=== PATIENT | female | born 1975 | race Caucasian/White ===

== ENCOUNTER 2016-11-16 17:50 | Emergency (ER) | payer MEDICAID ==
[~2016-11-16] VITALS: Ht 175.3 cm; Wt 107.5 kg
[~2016-11-16 17:50] MED LIST: COLACE; METFORMIN; OMEPRAZOLE; TRENTAL
[2016-11-16 17:54] VITALS: Ht 175.3 cm; Wt 107.5 kg
[2016-11-16 20:34] LABS: URINE BLOOD (Dip) POC 3+ (NEGATIVE)
--- NOTE | 2016-11-16 21:13 | ERD ---
ER Documentation Chief Complaint Date/Time DATE: 11/16/16 TIME: 21:12 Chief Complaint Complains of burning when urinating HPI 40-year-old female complains of Burning with urgency when she urinates, and lower abdominal discomfort 2 days. She denies any fevers or chills, nausea, vomiting. She denies flank pain or hematuria. Patient states that she is currently on her menses. She states she denies any vaginal discharge. She denies pelvic pain. ROS All systems reviewed and are negative except as per history of present illness. Medications Home Meds Active Scripts Phenazopyridine Hcl* (Pyridium*) 100 Mg Tab, 100 MG PO TID Y for URINARY PAIN, # 8 TAB Prov:AARON PICKETT PA-C 11/16/16 Reported Medications [Trental] No Conflict Check 04/28/09 [Colace] No Conflict Check 04/28/09 [Metformin] No Conflict Check 04/28/09 [Omeprazole] No Conflict Check 04/28/09 Allergies Allergies: Coded Allergies: No Known Allergies (Verified Allergy, Mild, 04/28/09) PMhx/Soc History of Surgery: No Anesthesia Reaction: No Hx Neurological Disorder: No Hx Respiratory Disorders: No Hx Cardiac Disorders: No Hx Psychiatric Problems: No Hx Miscellaneous Medical Probl: No Hx Alcohol Use: No Hx Substance Use: No Hx Tobacco Use: No Physical Exam Vitals Vital Signs Date Time Temp Pulse Resp B/P Pulse Ox O2 Delivery O2 Flow Rate FiO2 11/16/16 17:54 98.9 90 20 141/74 97 Physical Exam General: Well-developed, well-nourished. The patient appears in no acute distress. HEENT: Head is normocephalic, atraumatic. No scleral icterus. Pupils are equal , round, and reactive. Oral mucous membranes are moist. No pharyngeal erythema. Neck: Supple. Nontender. Lungs: Clear to auscultation. Normal air movement. Heart: Regular rate and rhythm. S1 and S2 are normal. No murmurs, gallops, or rubs. Abdomen: Soft, nontender, nondistended. Bowel sounds are normoactive. No CVA tenderness Extremities: No clubbing or cyanosis. Normal pulses. Moving extremities x 4. No weakness. Neurologic: Alert and oriented 3. No focal deficits. Skin: Normal turgor. No rash or lesions. Results 24 hrs Laboratory Tests Test 11/16/16 20:30 11/16/16 20:41 Urine Color STRAW Urine Clarity CLEAR Urine pH 6.0 Urine Specific Ferdinand 1.005 Urine Ketones NEGATIVEmg/dL Urine Nitrite NEGATIVEmg/dL Urine Bilirubin NEGATIVEmg/dL Urine Urobilinogen NEGATIVEmg/dL Urine Leukocyte Esterase NEGATIVELeu/ul Urine Microscopic RBC 1/HPF Urine Microscopic WBC 2/HPF Urine Bacteria FEW/HPF Urine Hemoglobin 3+mg/dL Urine Glucose NEGATIVEmg/dL Urine Total Protein NEGATIVEmg/dl Bedside Urine pH (LAB) 5.5 Bedside Urine Protein (LAB) Negative Bedside Urine Glucose (UA) Negative Bedside Urine Ketones (LAB) Negative Bedside Urine Blood 3+ Bedside Urine Nitrite (LAB) Negative Bedside Urine Leukocyte Esterase (L Negative Procedures/MDM 40-year-old female comes in with painful urination, as well as urgency for the past 2 days. Differential diagnoses includes interstitial cystitis, urinary tract infection, pyelonephritis, PID, cervicitis, , menstrual pain. Urine was negative for infection. Patient's urine analysis is negative for infection at this time, she complains abdominal discomfort in the lower region, will be treated with Pyridium. She has been asked to recheck with her primary doctor for any new or worsening symptoms. She urine does not show evidence of a UTI, she was asked to return if she develops any fever, worsening pain. Departure Diagnosis: Primary Impression: Dysuria Condition: AARON Murphy PA-C Nov 16, 2016 21:13
[2016-11-16 22:16] LABS: ADD UMIC YES; UR ASCORBIC ACID NEGATIVE (NEGATIVE); UR BACTERIA FEW /HPF (NONE SEEN); UR BILIRUBIN (Dip) NEGATIVE (NEGATIVE); UR BLOOD (Dip) 3+ mg/dL (NEGATIVE); UR CLARITY CLEAR (CLEAR); UR COLOR STRAW (YELLOW); UR GLUCOSE (Dip) NEGATIVE (NEGATIVE); UR KETONES (Dip) NEGATIVE (NEGATIVE); UR LEUKOCYTE ESTERASE (Dip) NEGATIVE Leu/ul (NEGATIVE); UR NITRITE (Dip) NEGATIVE (NEGATIVE); UR RBC 1 /HPF (0-5); UR SPECIFIC GRAVITY (Dip) 1.005 (1.003-1.030); UR TOTAL PROTEIN (Dip) NEGATIVE (NEGATIVE); UR UROBILINOGEN (Dip) NEGATIVE (NEGATIVE)
[2016-11-16] MEDS ORDERED: PHEN-537 PO (22:24)
== END 2016-11-16 22:50 | disposition home or self-care (01) ==
LOC: FTE 17:50
DX: R30.0 Dysuria (principal); Z79.84 Long term (current) use of oral hypoglycemic drugs
CPT/HCPCS: 81001; Z7502; 81003; 99283

== ENCOUNTER 2017-04-20 13:21 | Emergency (ER) | END 2017-04-20 17:21 | disposition home or self-care (01) ==

== ENCOUNTER 2018-06-27 21:08 | Emergency (ER) | payer MEDICAID ==
[~2018-06-27] VITALS: Wt 108.5 kg
[~2018-06-27 21:08] MED LIST changes: +IBUP-1542 PO; +PHEN-537 PO
[2018-06-28] MEDS ORDERED: CYCLOBENZAPRINE 10 MG TAB PO ONE
[2018-06-28] MEDS ORDERED: HYDROCODONE/APAP (5/325) TAB PO ONE
[2018-06-28] MEDS ORDERED: HYDR-4011 PO (00:12)
[2018-06-28] MEDS ORDERED: CYCL10TA7 PO (00:12)
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
[2018-06-28 00:38] VITALS: BP 145/73; PULSE 73; RESP 18
== END 2018-06-28 00:38 | disposition home or self-care (01) ==
LOC: FTE 21:08
DX: M54.9 Dorsalgia, unspecified (principal); R51 Headache
CPT/HCPCS: Z7502; Z7610; 99283